=== PATIENT | male | born 1955 | race Two or more races ===

== ENCOUNTER 2020-03-19 05:41 | Day surgery (SDC) | payer OTHER ==
[~2020-03-19 05:41] MED LIST: AMLO PO; AMLODIPINE PO; CYCLOBENZAPRINE10 MG PO; DICL; LEVA IN; LISINOPRIL40 MG PO; SULINDAC200 MG PO; TAMS0.4C PO; TEMOVATE30 GM; VITAMIN D3 PO; [UNRECOGNIZED DRUG - CODE]; [UNRECOGNIZED DRUG - CODE] PO; [UNRECOGNIZED DRUG - OTHER]
[2020-03-19] MEDS ORDERED: COLACE100 MG PO (08:31)
[2020-03-19] MEDS ORDERED: ADVIL200 MG PO (08:31)
[2020-03-19] MEDS ORDERED: PERCOCET 5-3251 EACH PO (08:31)
== END 2020-03-19 12:05 | disposition home or self-care (01) ==
LOC: CIR.AMB 05:41 → EDBD 13:00
PROVIDERS: ATTEND Surgery
DX: K64.8 Other hemorrhoids (principal); K64.4 Residual hemorrhoidal skin tags; Z20.828 Contact with and (suspected) exposure to other viral communicable diseases